=== PATIENT | male | born 1985 | race Two or more races ===

== ENCOUNTER 2018-05-17 16:34 | Emergency (ER) | payer BC ==
[~2018-05-17] VITALS: Ht 170.2 cm; Wt 143.3 kg
[2018-05-17] MEDS ORDERED: DEXAMETHASONE SOD PHOS 10 MG/ML VIAL IV ONE (17:30)
[2018-05-17 17:47] LABS: BASO # 0.1 x10^3/uL (0.0-0.2); BASO % 1 % (0-3); EOS # 0.1 x10^3/uL (0.0-0.7); EOS % 1 % (0-3); HEMATOCRIT 49.3 % (39.0-53.0); HEMOGLOBIN 17.1 g/dL (13.0-17.5); LYMPH # 1.6 x10^3/uL (1.0-4.8); LYMPH % 16 % (24-48); MEAN CORPUSCULAR HEMOGLOBIN 30 pg (25-35); MEAN CORPUSCULAR HGB CONC 35 g/dL (31-37); MEAN CORPUSCULAR VOLUME 86 fL (79-100); MONO # 0.7 x10^3/uL (0.0-1.1); MONO % 7 % (0-9); NEUT # 7.6 x10^3uL (1.8-7.7); NEUT % 75 % (31-73); PLATELET COUNT 295 x10^3/uL (140-400); RED BLOOD COUNT 5.74 x10^6/uL (4.30-5.70); RED CELL DISTRIBUTION WIDTH 12.9 % (11.5-14.5); WHITE BLOOD COUNT 10.1 x10^3/uL (4.0-11.0)
--- NOTE | 2018-05-17 17:50 | PHYS DOC ---
Past History Past Medical History: Other Additional Past Medical Histor: ITP Past Surgical History: No Surgical History Smoking: Non-smoker Alcohol Use: Occasionally Drug Use: None Adult General Chief Complaint Chief Complaint: SKIN RASH/ABSCESS HPI HPI 32-year-old male presents with 2 day history of rash noted to bilateral legs and to his left arm. Denies known exposure. Denies fever/chills. Patient does report some generalized weakness and malaise. Patient also noted to have some left hand and wrist swelling. Patient denies known trauma. Denies known sick contacts. Denies new detergents, shampoos, or medications. 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 Review of Systems Review of Systems Constitutional: Denies fever or chills; reports generalized malaise Eyes: Denies change in visual acuity, redness, or eye pain [] HENT: Denies nasal congestion or sore throat [] Respiratory: Denies cough or shortness of breath [] Cardiovascular: Denies chest pain or palpitations GI: Denies abdominal pain, nausea, vomiting, or diarrhea [] : Denies dysuria or hematuria [] Musculoskeletal: Reports left forearm and hand swelling[] Integument: Reports rash to bilateral legs and left arm Neurologic: Denies headache, focal weakness or sensory changes [] Complete systems were reviewed and found to be within normal limits, except as documented in this note. Current Medications Current Medications Current Medications Medications (Trade) Dose Ordered Sig/[facility] Start Time Stop Time Status Last Admin Dose Admin Dexamethasone Sodium Phosphate (Decadron) 10 mg 1X ONCE 05/17/18 17:30 05/17/18 17:31 DC 05/17/18 17:30 10 MG Allergies Allergies Allergies Coded Allergies Type Severity Reaction Last Updated Verified Penicillins Allergy Intermediate 05/17/18 Yes Physical Exam Physical Exam Constitutional: Well developed, well nourished, no acute distress, non-toxic appearance. [] HENT: Normocephalic, atraumatic, oropharynx moist Eyes: conjunctiva normal, no discharge. [] Neck: Normal range of motion, no tenderness, supple, no meningeal signs Cardiovascular: Heart rate regular rhythm, no murmur [] Lungs & Thorax: Bilateral breath sounds clear to auscultation [] Abdomen: Soft, no tenderness Skin: Warm, dry, petechial rash noted to bilateral lower extremities and to left forearm, nontender to palpation Extremities: ROM intact, mild tenderness noted to dorsum of left hand and distal forearm, mild edema noted[] Neurologic: Alert and oriented X 3, normal motor function, normal sensory function, no focal deficits noted. [] Psychologic: Affect normal, judgement normal, mood normal. [] Current Patient Data Vital Signs Vital Signs Date Time Temp Pulse Resp B/P (MAP) Pulse Ox O2 Delivery O2 Flow Rate FiO2 05/17/18 16:52 98.3 88 18 96 Room Air EKG EKG [] Radiology/Procedures Radiology/Procedures [] Course & Med Decision Making Course & Med Decision Making Pertinent Labs and Imaging studies reviewed. (See chart for details) Patient presents with nondescript petechial rash with left forearm and hand swelling. Patient does report past medical history of ITP. Afebrile. Labs obtained and pending at this time. 1800- Sign out given to Dr. Truong for further evaluation and final disposition. Discussed current findings and plan with patient, who acknowledges understanding and agreement. Impression: 1. Skin Rash- 2. Lt Arm Edema 3. Hx ITP- Plan will tx as if ITP early on set. Prednisone 50 mg daily. Pt. to follow up with primary. Return if any concerns. Dragon Disclaimer Dragon Disclaimer This electronic medical record was generated, in whole or in part, using a voice recognition dictation system. Departure Departure: Impression: Primary Impression: Rash Additional Impression: Pain and swelling of left forearm Referrals: SEAN AKERS DO (PCP) Scripts Prednisone (PREDNISONE) 50 Mg Tablet 50 MG PO DAILY for 7 Days, #7 TAB Prov: CHRISTIANE TRUONG MD 05/17/18 Problem Qualifiers JERALD BURNS DO May 17, 2018 17:50 CHRISTIANE TRUONG MD May 18, 2018 00:53
[2018-05-17 18:02] LABS: ALBUMIN 3.8 g/dL (3.4-5.0); ALBUMIN/GLOBULIN RATIO 0.9 (1.0-1.7); CALCIUM 8.8 mg/dL (8.5-10.1); CREATININE 0.9 mg/dL (0.7-1.3); GFR 96.6; MAGNESIUM 2.2 mg/dL (1.8-2.4); POTASSIUM 3.6 mmol/L (3.5-5.1); TOTAL BILIRUBIN 0.8 mg/dL (0.2-1.0); TOTAL PROTEIN 8.1 g/dL (6.4-8.2)
[2018-05-17] MEDS ORDERED: PRED50TA PO (18:47)
[2018-05-17 18:48] LABS: BACTERIA,URINE 0 /HPF (0-FEW); BILIRUBIN,URINE NEG (NEG); CLARITY,URINE HAZY; COLOR,URINE YELLOW; GLUCOSE,URINE NEG (NEG); NITRITE,URINE NEG (NEG); RBC,URINE OCC /HPF (0-2); SQUAMOUS EPITHELIAL CELL,UR FEW /LPF; UROBILINOGEN,URINE 0.2 mg/dL (0.2 mg/dL)
[2018-05-17 19:13] LABS: SEDIMENTATION RATE 9 (0-15)
[2018-05-17 19:35] VITALS: BP 154/76
== END 2018-05-17 19:33 | disposition home or self-care (01) ==
LOC: ER 16:34
DX: R21 Rash and other nonspecific skin eruption (principal); R22.32 Localized swelling, mass and lump, left upper limb; R53.1 Weakness; D69.3 Immune thrombocytopenic purpura; Z88.0 Allergy status to penicillin
CPT/HCPCS: 36415; 80053; 81001; 83605; 83735; 85025; 85610; 85651; 85730; 96374; 99284; J1100